=== PATIENT | male | born 1995 | race Caucasian/White ===

== ENCOUNTER 2017-11-18 00:35 | Emergency (ER) | payer OTHER, BC | END 2017-11-18 04:16 | disposition home or self-care (01) | LOC: E/R 00:35 | DX: R04.0 Epistaxis (principal) | CPT/HCPCS: 30903; 99283-25 ==

== ENCOUNTER 2017-11-19 09:54 | Emergency (ER) | payer OTHER | END 2017-11-19 11:39 | disposition home or self-care (01) | LOC: FTE 09:54 | DX: R04.0 Epistaxis (principal) | CPT/HCPCS: 99282; Z7502 ==